=== PATIENT | female | born 1985 | race Caucasian/White ===

== ENCOUNTER 2016-09-26 13:14 | Emergency (ER) | payer OTHER ==
[~2016-09-26] VITALS: Ht 172.7 cm; Wt 136.1 kg
[2016-09-26] MEDS ORDERED: PROTONIX40 M3 PO (13:47)
[2016-09-26] MEDS ORDERED: METFORMIN HCL1000 M1 PO (13:48)
[2016-09-26] MEDS ORDERED: NICOTINE LOZENGE4 MG PO (13:48)
[2016-09-26] MEDS ORDERED: HYDROXYZINE HCL50 M1 PO (13:49)
[2016-09-26] MEDS ORDERED: DIPHENHYDRAMINE50 M1 PO (13:49)
[2016-09-26] MEDS ORDERED: NICOTINE PATCH1 EAC3 TOP (13:49)
[2016-09-26] MEDS ORDERED: ZOLOFT100 M1 PO (13:50)
[2016-09-26] MEDS ORDERED: PRAZOSIN HCL2 M1 PO (13:50)
[2016-09-26] MEDS ORDERED: RISPERIDONE2 M1 PO (13:51)
--- NOTE | 2016-09-26 14:07 | ED GI/GU/ABDOMINAL COMPLAINT ---
History of Present Illness General Chief Complaint: General Adult Stated Complaint: UPPER GASTRIC PAIN Source: patient Exam Limitations: no limitations Vital Signs & Intake/Output Vital Signs & Intake/Output Vital Signs Date Time Temp Pulse Resp B/P Pulse O2 O2 Flow FiO2 Ox Delivery Rate 09/26 1436 97.0 88 20 115/70 96 Room Air 09/26 1317 96.8 98 16 152/91 98 Room Air Allergies Coded Allergies: No Known Allergies (09/26/16) Reconcile Medications Diphenhydramine HCl 50 MG CAPSULE 1 CAP PO QPM SLEEP (Reported) Hydroxyzine HCl 50 MG TABLET 1 TAB PO QPM SLEEP (Reported) Metformin HCl 1,000 MG TABLET 1 TAB PO BID DIABETES (Reported) Nicotine (Nicotine Patch) 21 MG/24 HOUR PATCH.TD24 1 PAT TOP DAILY SMOKING ( Reported) Nicotine Polacrilex (Nicotine Lozenge) 4 MG LOZENGE 1 PO PRN PRN SMOKING ( Reported) Pantoprazole Sodium (Protonix) 40 MG TABLET.DR 1 TAB PO BID REFLX (Reported) Prazosin HCl 2 MG CAPSULE 1 CAP PO QPM BP (Reported) Risperidone 2 MG TABLET 1 TAB PO QPM DEPRESSION/ANXIETY (Reported) Sertraline HCl (Zoloft) 100 MG TABLET 1 TAB PO DAILY DEPRESSION (Reported) Triage Note: 31 Y/O FEMALE C/O WORSENING "ACID REFLUX"; STATES SHE HAS BEEN HAVING SYMPTOMS X MONTHS DESPITE TAKING PROTONIX DAILY. DENIES OTHER COMPLAINTS. + INTERMITTENT NAUSEA. Triage Nurses Notes Reviewed? yes LMP (ages 10-50): unknown ? n Is pt currently ? No Onset: 1 month Duration: week(s):, constant, continues in ED, getting worse Timing: recent history Quality/Severity: aching, cramping, moderate Location: epigastric Radiation: chest, epigastric Activities at Onset: none Prior Abdominal Problems: similar symptoms Past Sexual History: Unobtainable at this time Modifying Factors: Worsens With: eating. Associated Symptoms: abdominal pain, loss of appetite, nausea/vomiting HPI: 1 month prior to admission patient complains of worsening reflux symptoms described as epigastric aching moderate to severe radiating to her chest and throat with loss of taste appetite nausea and cough. She also has issues with frequent loose watery stools that have been chronic. Her PMD is increased her Protonix to 80 mg daily. She denies fever chills shortness of breath headache dysuria rash bleeding . Past History Travel History Traveled to [place] past 21 day No Medical History Any Pertinent Medical History? see below for history Neurological: NONE EENT: NONE Cardiovascular: NONE Respiratory: NONE Gastrointestinal: GERD Hepatic: NONE Renal: polycystic kidney disease Musculoskeletal: NONE Psychiatric: PTSD Endocrine: NONE Blood Disorders: NONE Cancer(s): NONE DISTRICT ADMINISTRATIVE ASSISTANT/Reproductive: NONE History of CDIFF: No Isolation History: Standard Surgical History Surgical History: non-contributory Psychosocial History What is your primary language Chinese Tobacco Use: Current Daily Use Daily Tobacco Use Amount/Type: => 5 Cigarettes daily Family History Hx Contributory? No Review of Systems Review of Systems Constitutional: Reports: no symptoms. EENTM: Reports: no symptoms. Respiratory: Reports: see HPI, cough. Cardiovascular: Reports: no symptoms. GI: Reports: see HPI, abdominal pain, diarrhea, nausea. Genitourinary: Reports: no symptoms. Musculoskeletal: Reports: no symptoms. Skin: Reports: no symptoms. Neurological/Psychological: Reports: no symptoms. Hematologic/Endocrine: Reports: no symptoms. Immunologic/Allergic: Reports: no symptoms. All Other Systems: Reviewed and Negative Physical Exam Physical Exam General Appearance: well developed/nourished, alert, awake, anxious, mild distress, obese Head: atraumatic, normal appearance Eyes: Bilateral: normal appearance, PERRL, EOMI, normal inspection. Ears, Nose, Throat, Mouth: hearing grossly normal, moist mucous membrane Neck: normal inspection, supple, full range of motion, no midline tenderness Respiratory: normal breath sounds, chest non-tender, no respiratory distress, quiet respiration, lungs clear Cardiovascular: regular rate/rhythm, normal peripheral pulses, norml femoral pulses equa Peripheral Pulses: 4+ carotid (R), 4+ carotid (L) Gastrointestinal: normal bowel sounds, soft, non-tender, no organomegaly Back: normal inspection, normal range of motion Extremities: normal range of motion, no ligament instability Neurologic/Psych: no motor/sensory deficits, awake, alert, oriented x 3, normal gait, normal mood/affect Skin: intact, normal color, warm/dry Core Measures ACS in differential dx? No Severe Sepsis Present: No Septic Shock Present: No Progress Differential Diagnosis: biliary colic, gastritis, pancreatitis, PUD/GERD Plan of Care: Orders Procedure Date/time Status LIPASE 09/26 1353 Complete HUMAN BETA HCG SCREEN 09/26 1353 Complete COMPREHENSIVE METABOLIC PANEL 09/26 1353 Complete CBC WITHOUT DIFFERENTIAL 09/26 1353 Complete Laboratory Tests 09/26/16 1411: Anion Gap 14, Estimated GFR > 60, BUN/Creatinine Ratio 11.1, Glucose 84, Calcium 9.7, Total Bilirubin 0.5, AST 21, ALT 41, Alkaline Phosphatase 87, Total Protein 7.2, Albumin 4.2, Globulin 3.0, Albumin/Globulin Ratio 1.4, Lipase 31, Total Beta HCG NEGATIVE, CBC w Diff NO MAN DIFF REQ, RBC 4.56, MCV 82.9, MCH 28.4, RDW 13.6, MPV 6.7 L, Gran % 52.5, Lymphocytes % 34.8, Monocytes % 6.9, Eosinophils % 5.1 H, Basophils % 0.7, Absolute Granulocytes 4.3, Absolute Lymphocytes 2.9, Absolute Monocytes 0.6, Absolute Eosinophils 0.4, Absolute Basophils 0.1, PUBS MCHC 34.3 Diagnostic Imaging: Viewed by Me: Radiology Read. Discussed w/RAD: Radiology Read. CXR Impression: no acute abnormality, no infiltrates Initial ED EKG: none Comments: Feels better after interventions Departure Departure Time of Disposition: 1505 Disposition: HOME OR SELF CARE Condition: Stable Clinical Impression Primary Impression: Gastroesophageal reflux disease with esophagitis Referrals: DONALDO KENDALL,MARIE Galindo Call for GI follow up. LIZY KENDALL,ALE Sellers (PCP/Family) Departure Forms: Customer Survey General Discharge Information Prescriptions: Current Visit Scripts Metoclopramide HCl (Reglan) 1 TAB PO 4 TIMES/DAY PRN GERD #60 TAB 30 minutes before meals and bedtime Famotidine (Pepcid) 1 TAB PO BID #60 TAB Ref 1 Hyoscyamine Sulfate (Levsin-Sl) 1-2 TAB SL Q4P PRN abd cramps/pain #60 TAB
[2016-09-26 14:18] LABS: ABSOLUTE BASOPHIL COUNT 0.1 /CUMM (0.0-0.2); ABSOLUTE EOSINOPHIL COUNT 0.4 /CUMM (0.0-0.7); ABSOLUTE GRANULOCYTE CT 4.3 /CUMM (1.4-6.5); ABSOLUTE LYMPH COUNT 2.9 /CUMM (1.2-3.4); ABSOLUTE MONOCYTE COUNT 0.6 /CUMM (0.10-0.60); BASOPHIL % 0.7 % (0.0-2.0); EOSINOPHIL % 5.1 % (0-5); GRANULOCYTE % 52.5 % (42.2-75.2); HEMATOCRIT 37.8 % (37-47); MEAN CORPUSCULAR HGB 28.4 PG (27.0-31.0); MEAN CORPUSCULAR HGB CONC 34.3 G/DL (33.0-37.0); MEAN CORPUSCULAR VOLUME 82.9 FL (81.0-99.0); MEAN PLATELET VOLUME 6.7 FL (7.4-10.4); PLATELET COUNT 291 /CUMM (130-400); RBC DISTRIBUTION WIDTH 13.6 % (11.5-14.5); RED BLOOD CELL CT 4.56 /CUMM (4.20-5.40); WHITE BLOOD CELL COUNT 8.3 /CUMM (4.8-10.8)
[2016-09-26 14:36] VITALS: BP 115/70
[2016-09-26] MEDS ORDERED: REGLAN10 M1 PO (15:06)
[2016-09-26] MEDS ORDERED: LEVSIN-SL0.125 MG SL (15:06)
[2016-09-26] MEDS ORDERED: PEPCID20 M1 PO (15:06)
--- NOTE | 2016-09-26 15:06 | RADIOLOGY REPORT ---
EXAMINATION: XR CHEST CLINICAL INFORMATION: History of reflux with cough. Evaluate for pneumonia. COMPARISON: None. TECHNIQUE: PA and lateral views of the chest were obtained. FINDINGS: The lungs are well-expanded and clear without focal airspace consolidation. No pleural effusions or pneumothoraces are identified. Cardiomediastinal contours are within normal limits. Soft tissues are unremarkable. No acute osseous abnormality is identified. IMPRESSION: No acute cardiopulmonary abnormality.
== END 2016-09-26 15:21 ==
LOC: ERH 13:14
PROVIDERS: Emergency Medicine
DX: K21.0 Gastro-esophageal reflux disease with esophagitis (principal)
CPT/HCPCS: 96374; 96375; J2765